=== PATIENT | male | born 1935 | race Hispanic/Latino ===

== ENCOUNTER 2018-07-19 15:29 | Observation (INO) | payer MEDICARE ==
[~2018-07-19] VITALS: Ht 172.7 cm; Wt 76.7 kg
[2018-07-19] MEDS ORDERED: ULTRAM50 MG PO (16:35)
--- NOTE | 2018-07-19 17:27 | Diagnostic Imaging Report ---
EXAMINATION: Head CT HISTORY: Dizziness, nausea and vomiting COMPARISON: None. TECHNIQUE: Multidetector axial images were obtained without contrast from the foramen magnum to the vertex . The images were reconstructed using brain and bone algorithms. Thin section brain images were reformatted into coronal and sagittal planes. Intravenous contrast: None. Image quality: Motion/streaking artifact limits the evaluation of the skull base and posterior cranial fossa. Dose modulation, iterative reconstruction, and/or weight based adjustment of the mA/kV was utilized to reduce the radiation dose to as low as reasonably achievable. FINDINGS: Parenchyma: 1. Mildly confluent periventricular and singleton radiata matter hypodensities, most likely nonspecific chronic microvascular changes. 2. No mass or hemorrhage. No CT evidence of acute territorial vascular insult. Extra-axial spaces:No abnormal density. No extra-axial fluid collections Brain volume: Normal for age. Ventricles: No hydrocephalus or displacement. Arteries: No density suggestive of thrombus. Dural sinuses: No abnormal density. Extra-axial spaces: No abnormal density. Foramen magnum: No mass, Chiari malformation, or basilar invagination. Sella: Mildly prominent pituitary gland for patient's age without significant suprasellar extension or evidence of compression of the optic chiasm. Paranasal/mastoid sinuses: Imaged portions unremarkable. Skull/Scalp: No lytic or blastic lesions. No fractures. IMPRESSION: 1. No acute intracranial hemorrhage or cortical infarcts. 2. Mild chronic microvascular ischemic changes. Signed by: Dr. Jessica Guzman M.D. on 07/19/2018 5:24 PM
[2018-07-19] MEDS ORDERED: SODIUM CHLORIDE FLUSH 10 ML SYR INJ PRN (18:00)
[2018-07-19] MEDS ORDERED: ONDANSETRON HCL INJ 2 MG/ML VIAL IV PRN (18:00)
[2018-07-19 19:00] VITALS: BP 153/76
[2018-07-19 20:00] VITALS: BP 169/78
[2018-07-19 23:00] VITALS: BP 169/78
[2018-07-20 00:39] VITALS: BP 121/55
[2018-07-20 04:00] VITALS: BP 141/62
[2018-07-20 08:37] VITALS: BP 140/65
[2018-07-20] MEDS ORDERED: ONDANSETRON HCL INJ 2 MG/ML VIAL IV PRN (08:45)
[2018-07-20] MEDS ORDERED: SODIUM CHLORIDE FLUSH 10 ML SYR INJ PRN (08:45)
[2018-07-20] MEDS ORDERED: ASPIRIN 325 MG TAB EC PO SCH ×2 (09:00)
[2018-07-20] MEDS ORDERED: TRAMADOL HCL 50 MG TAB PO PRN (10:00)
[2018-07-20 10:10] VITALS: BP 140/65
[2018-07-20 13:12] VITALS: BP 137/77
--- NOTE | 2018-07-20 14:19 | Diagnostic Imaging Report ---
EXAMINATION: MRI of the brain without contrast. HISTORY: Dizziness, imbalance, lightheadedness and generalized weakness, transient ischemic attack. COMPARISON: Head CT on 07/19/2018 TECHNIQUE: Sagittal T2; axial DWI, T2, FLAIR, T1-IR, T2 gradient echo; coronal FLAIR. FINDINGS: Parenchyma: 1. Few scattered and mildly confluent periventricular white matter T2 and FLAIR hyperintense foci, most likely nonspecific chronic microvascular ischemic changes. 2. No mass, hemorrhage, acute or chronic infarcts. Skull: Unremarkable. Vessels: Expected flow voids present in the major arteries and dural sinuses. Extra-axial spaces: No abnormal signal intensity or mass effect. Brain volume: Within normal limits for age. Ventricles: No hydrocephalus or displacement. Foramen magnum: Unremarkable. Sella: Unchanged nonspecific enlargement of the pituitary gland for patient's age, measuring about 10 mm maximum height, with minimal extensions towards the left cavernous sinus without definite infiltration, no suprasellar extension or compression of the optic chiasm is seen in either. This may correspond to a nonsecreting pituitary adenoma if the patient is asymptomatic. Paranasal / mastoid sinuses: No significant inflammatory disease. IMPRESSION: 1. No acute infarct. 2. Mild chronic microvascular ischemic changes. 3. Again incidentally noted enlarged pituitary gland as detailed above. Signed by: Dr. Jessica Guzman M.D. on 07/20/2018 2:15 PM
[2018-07-20] MEDS ORDERED: MECLIZINE HCL12.5 MG PO (15:32)
== END 2018-07-20 15:55 | disposition home or self-care (01) ==
LOC: FSED 15:29 → MED/SURG 19:00
PROVIDERS: ADMIT Internal Medicine; ATTEND Internal Medicine
DX: R42 Dizziness and giddiness (principal); Z82.3 Family history of stroke; G89.29 Other chronic pain
CPT/HCPCS: 70450; 70551; 80053; 81003; 84484; 85025; 85610; 93005; 99284; G0378 ×2; J2405